=== PATIENT | female | born 2000 | race American Indian/Alaskan Native ===

== ENCOUNTER 2020-11-15 13:05 | Emergency (ER) | payer OTHER, BC ==
[2020-11-15 14:02] VITALS: BP 100/54
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
== END 2020-11-15 15:04 | disposition home or self-care (01) ==
LOC: ED 13:05
DX: M25.551 Pain in right hip (principal); M25.552 Pain in left hip; M79.601 Pain in right arm; Z79.1 Long term (current) use of non-steroidal anti-inflammatories (NSAID); V49.59XA Passenger injured in collision with other motor vehicles in traffic accident, initial encounter; Y93.89 Activity, other specified; Y92.410 Unspecified street and highway as the place of occurrence of the external cause; Y99.8 Other external cause status
CPT/HCPCS: 99282